=== PATIENT | female | born 1960 | race Caucasian/White ===

== ENCOUNTER 2016-08-26 19:26 | Observation (INO) | payer MEDICAID ==
--- NOTE | 2016-08-26 19:36 | EDPRACDOC ---
- General Information Chief Complaint: Psychiatric Illness Stated Complaint: MENTAL EVAL Time Seen by Provider: 08/26/16 19:27 Home Medications: Home Medications Alprazolam [Xanax] 0.5 mg PO DAILY 08/26/16 Aspirin 81 mg PO DAILY 08/26/16 Budesonide/Formoterol Fumarate [Symbicort 160-4.5 Mcg Inhaler] 2 puff INH BID Clonazepam 0.5 mg PO Q8H PRN 08/26/16 Dexlansoprazole [Dexilant] 60 mg PO DAILY 08/26/16 Divalproex Sodium [Depakote ER] 500 mg PO TID 08/26/16 Docusate Sodium [Colace] 100 mg PO BID 08/26/16 Duloxetine HCl [Cymbalta] 30 mg PO BID 08/26/16 Montelukast Sodium [Singulair] 10 mg PO DAILY 08/26/16 [place]-3 Fatty Acids/Fish Oil [Fish Oil 1,000 mg Capsule] 1 cap PO DAILY Phenytoin Sodium Extended [Dilantin] 100 mg PO TID 08/26/16 Allergies/Adverse Reactions: Allergies Allergy/AdvReac Type Severity Reaction Status Date / Time gatifloxacin Allergy Unknown Verified 08/26/16 20:01 SHELLFISH Allergy Unknown Uncoded 08/26/16 19:53 TEQUIN Allergy Unknown Uncoded 08/26/16 19:53 - History of Present Illness Onset: UNKNOWN HPI: PT FROM [facility] DUE TO AGGRESSIVE BEHAVIORS TOWARDS STAFF. EMS REPORTS THAT PT IS A NEW RESIDENT THERE AND HAS BEEN HAVING INCREASING AGGRESSIVE BEHAVIORS OVER LAST FEW DAYS. PT HAS HX OF SIGNIFICANT DEMENTIA AND IS UNABLE TO PROVIDE ADEQUATE HISTORY. Reason for Seeking Treatment: 911 Call Presents With: Reports: Other (COMBATIVE) Expresses: Reports: None Suicidal Plan: Reports: None Relevant History: Reports: None Medication Compliance: Yes Able to Care for Self: No (PT IS IN [facility]) Associated Signs and Symptoms: Reports: None ED Past Medical History - History Reviewed Yes Nurses notes reviewed and agree except as marked Information Unobtainable: Yes Unable to obtain information due to patient condition - Patient Medical History Neurological History: Reports: Seizures, Dementia - Social Medical History Lives In: Assisted Living EDM Review of Systems - Review of Systems ROS Unobtainable: Yes Review of systems cannot be obtained due to the patient's medical condition - Physical Exam Constitutional: Alert (Awake), No apparent distress Oriented to: Person Last recorded Vital Signs: Oxygen Pulse Oxygen Saturation O2 Device Oxygen Flow Rate Fraction of Inspired Oxygen ( FIO2) - HEENT Head: Normal ( normocephalic) Eye Exam: Normal (PERRL, EOMI, Sclera white) Oropharynx: Normal (Pharynx:Moist without exudate,Gums-no swelling) Tympanic Membrane: Normal ENT EAC: Normal TMJ: Normal Nose: No Symptoms Reported (septum midline) Neck: Normal (FROM, trachea at midline) HEENT Comment: OLD BRUISING NOTED BELOW RIGHT EYE, FAINT - Respiratory/Cardiovascular Respiratory: Normal - CTA (BBS clear to auscultation without adventitious sounds ) Cardiovascular: Normal (RRR without murmur, gallop or rub) - GI Auscultation: Normal (NABS) Palpation: Normal (Soft,No rebound or guarding, non distended) Tenderness: Non tender Ambrosio's Sign: Negative - Musculoskeletal Back: Normal (Non-Tender) Extremities: Normal (Normal tone, Pulses 2+ No cyanosis or edema, FROM) - Integumentary Skin: Normal, Warm, Dry Lymphatics: Normal (no adenopathy) - Neurologic Memory Impaired: Unable to Test Motor Function: Unable to Test Cranial Nerve: Unable to Test Cerebellar: Unable to Test Mood Description: Normal Initial Evaluation Apperance: Older than stated age Attitude: Cooperative Mood: Euthymic Affect: Congruent w/ mood Memory Description: Recent Impaired, Remote Impaired - Differential Diagnosis Bipolar disorder, Schizophrenia - Re-evaluation Re-evaluation 1 Re-evaluation Time: 20:01 (PT REFUSING TO STAY IN BED, URINATED ON FLOOR) Re-evaluation 2 Re-evaluation Time: 00:11 (IMPROVED AFTER GEODON, WILL ADD RISPERDAL) - Results 08/26/16 22:50 08/26/16 22:50 08/27/16 00:12 Laboratory Results - last 24 hr 08/26/16 08/26/16 08/26/16 19:50 19:50 22:50 WBC RBC Hgb Hct MCV MCH MCHC RDW Plt Count MPV Neut % (Auto) Lymph % (Auto) [place] % (Auto) Eos % (Auto) Baso % (Auto) Absolute Neuts (auto) Absolute Lymphs (auto) Sodium 149 H Potassium 4.3 Chloride 109 H Carbon Dioxide 27 Anion Gap 17 H BUN 16 Creatinine 0.80 Estimated GFR (MDRD) > 60 Glucose 92 Calculated Osmolality 287 Calcium 9.0 Corrected Calcium 9.2 Total Bilirubin 0.8 AST 85 H ALT 60 H Alkaline Phosphatase 106 Ammonia Total Protein 7.7 Albumin 4.0 Urine Color Ada Urine Clarity Clear Urine pH 5.0 Ur Specific [place] 1.030 Urine Protein 1+ H Urine Glucose (UA) Neg Urine Ketones 1+ H Urine Occult Blood Neg Urine Nitrite Neg Urine Bilirubin Neg Urine Urobilinogen 2 H Ur Leukocyte Esterase Neg Urine RBC 0-2 Urine WBC 2-5 Ur Epithelial Cells 1+ Urine Bacteria Few Hyaline Casts 2-5 H Urine Mucus Mod H Urine Opiates Screen Neg Ur Oxycodone Screen Neg Urine Methadone Screen Neg Ur Barbiturates Screen *positive* H Phenytoin < 3.0 L Valproic Acid 86.8 Ur Tricyclics Screen Neg Ur Phencyclidine Scrn Neg Ur Amphetamines Screen Neg U Methamphetamines Scrn Neg Urine MDMA Screen Neg U Benzodiazepines Scrn *positive* H Urine Cocaine Screen Neg Ur THC Screen Neg Plasma/Serum Ethyl Alc 08/26/16 08/26/16 22:50 22:50 WBC 7.0 RBC 3.84 L Hgb 13.1 Hct 38.6 MCV 101 H MCH 34.1 H MCHC 33.9 RDW 14.0 Plt Count 218 MPV 8.9 Neut % (Auto) 40.6 L Lymph % (Auto) 45.3 H [place] % (Auto) 12.6 H Eos % (Auto) 0.4 Baso % (Auto) 1.1 Absolute Neuts (auto) 2.80 Absolute Lymphs (auto) 3.15 Sodium Potassium Chloride Carbon Dioxide Anion Gap BUN Creatinine Estimated GFR (MDRD) Glucose Calculated Osmolality Calcium Corrected Calcium Total Bilirubin AST ALT Alkaline Phosphatase Ammonia 35.0 H Total Protein Albumin Urine Color Urine Clarity Urine pH Ur Specific [place] Urine Protein Urine Glucose (UA) Urine Ketones Urine Occult Blood Urine Nitrite Urine Bilirubin Urine Urobilinogen Ur Leukocyte Esterase Urine RBC Urine WBC Ur Epithelial Cells Urine Bacteria Hyaline Casts Urine Mucus Urine Opiates Screen Ur Oxycodone Screen Urine Methadone Screen Ur Barbiturates Screen Phenytoin Valproic Acid Ur Tricyclics Screen Ur Phencyclidine Scrn Ur Amphetamines Screen U Methamphetamines Scrn Urine MDMA Screen U Benzodiazepines Scrn Urine Cocaine Screen Ur THC Screen Plasma/Serum Ethyl Alc - Departure Disposition: Admit to Condition: Stable Final Diagnosis: Advanced dementia, Agitation Education/Counseling Given To: Patient Education/Counseling Given Regarding: Diagnosis, Treatment, Prognosis, Follow Up Referrals: Saran Peoples MD [Primary Care Provider] - One Week Prescriptions: No Action Phenytoin Sodium Extended [Dilantin] 100 mg PO TID Budesonide/Formoterol Fumarate [Symbicort 160-4.5 Mcg Inhaler] 2 puff INH BID [place]-3 Fatty Acids/Fish Oil [Fish Oil 1,000 mg Capsule] 1 cap PO DAILY Montelukast Sodium [Singulair] 10 mg PO DAILY Duloxetine HCl [Cymbalta] 30 mg PO BID Docusate Sodium [Colace] 100 mg PO BID Divalproex Sodium [Depakote ER] 500 mg PO TID Dexlansoprazole [Dexilant] 60 mg PO DAILY Aspirin 81 mg PO DAILY Alprazolam [Xanax] 0.5 mg PO DAILY Clonazepam 0.5 mg PO Q8H PRN PRN Reason: Anxiety
[2016-08-26 19:52] VITALS: BMI 29.0
[2016-08-26 19:55] LABS: ALL NEG? NO
[2016-08-26 20:00] LABS: LEUKOCYTES/URINE NEG (NEGATIVE); NITRITE/URINE NEG (NEGATIVE); RBC/URINE 0-2 (0-5); URINE OCCULT BLOOD NEG (NEG/TRACE)
[2016-08-26 20:01] LABS: MDMA* NEG (NEGATIVE); METHAMPHETAMINES NEG (NEGATIVE)
[2016-08-26] MEDS ORDERED: HALOPERIDOL 5 MG/ML VIAL IM ONE (20:01)
[2016-08-26 20:02] LABS: OXYCODONE NEG (NEGATIVE)
[2016-08-26] MEDS ORDERED: LORAZEPAM 2 MG/ML VIAL IM ONE (20:02)
[2016-08-26] MEDS ORDERED: HALOPERIDOL 5 MG/ML VIAL ONE (20:13)
[2016-08-26] MEDS ORDERED: ZIPRASIDONE 20 MG VIAL IM ONE (21:18)
[2016-08-26] MEDS ORDERED: WATER 10 ML ONE (22:06)
[2016-08-26 23:02] LABS: AUTOMATED BASOPHIL 1.1 % (0-2); AUTOMATED EOSINOPHIL 0.4 % (0-5); AUTOMATED LYMPH 45.3 % (17-44); AUTOMATED MONOCYTE 12.6 % (3-10); AUTOMATED NEUTROPHIL 40.6 % (45-76); MPV 8.9 fL (7.4-10.4)
[2016-08-26 23:11] LABS: BLOOD UREA NITROGEN 16 MG/DL (7-17); CALCULATED OSMOLALITY 287 MOs/Kg (270-290); CHLORIDE 109 mEq/L (98-107); ETOH-MGDL < 10 mg/dL; GLUCOSE 92 MG/DL (70-99); SODIUM LEVEL 149 mEq/L (137-146); TOTAL PROTEIN 7.7 G/DL (6.3-8.2)
[2016-08-26 23:16] LABS: VALPROIC ACID LEVEL 86.8 MCG/ML (50-100)
[2016-08-26 23:50] LABS: CALC CORRECTED 9.2 MG/DL (8.4-10.2)
[2016-08-26 23:59] LABS: PHENYTOIN/DILANTIN LEVEL < 3.0 MCG/ML (10-20)
[2016-08-27] MEDS ORDERED: ACETAMINOPHEN 325 MG/TAB TABLET PO PRN (00:14)
[2016-08-27] MEDS ORDERED: MAGNESIUM HYDROXIDE 30 ML BOTTLE PO PRN (00:14)
[2016-08-27] MEDS ORDERED: Aluminum;Magnesium;Simethicone 30 ML UDC PO PRN (00:14)
[2016-08-27] MEDS ORDERED: ONDANSETRON HCL 4 MG ODT TAB PO PRN (00:14)
[2016-08-27] MEDS ORDERED: ZOLPIDEM TARTRATE 5 MG TAB PO PRN (00:14)
[2016-08-27] MEDS: ALBUTEROL 0.083% 3 ML NEB NEB SCH ×3 (02:49→14:37)
[2016-08-27] MEDS: DIVALPROEX SODIUM 500 MG EXT REL TAB PO SCH ×3 (06:46→22:00)
[2016-08-27] MEDS: PHENYTOIN SODIUM 100 MG CAP PO SCH ×3 (06:46→22:00)
[2016-08-27] MEDS: PANTOPRAZOLE 40 MG TAB PO SCH (06:47)
--- NOTE | 2016-08-27 08:13 | EDTUNOTE ---
Initial Evaluation Apperance: Older than stated age Attitude: Cooperative Mood: Euthymic Affect: Congruent w/ mood Memory Description: Recent Impaired, Remote Impaired - SOAP Note Patient Problems: Active Problems Advanced dementia (Acute) F03.90 Agitation (Acute) R45.1 SOAP Note: S: pt sitting quietly eating breakfast with assistance. O: VS nml A: Advanced dementia (Acute) F03.90 Agitation (Acute) R45.1 P: will cont to monitor pending further evaluation and disposition
[2016-08-27] MEDS: ASPIRIN (CHEWABLE) 81 MG TAB PO SCH (08:20)
[2016-08-27] MEDS: Docusate Sodium 100 MG CAP PO SCH ×2 (08:21→22:00)
[2016-08-27] MEDS: DULOXETINE 30 MG CAP PO SCH ×2 (08:21→22:00)
[2016-08-27] MEDS: ALPRAZOLAM 0.5 MG TAB PO SCH (08:21)
[2016-08-27] MEDS: OMEGA-3-ACID ETHYL ESTERS 1000 MG CAP PO SCH (08:21)
[2016-08-27] MEDS: RISPERIDONE 1 MG TAB PO SCH ×2 (08:21→22:00)
[2016-08-27] MEDS: MONTELUKAST SODIUM 10 MG TAB PO SCH (08:21)
[2016-08-27] MEDS: BUDESONIDE 0.5 MG NEB NEB SCH ×2 (08:46→20:50)
[2016-08-27] MEDS ORDERED: Non-Formulary Medication ITEM (Dexlansoprazole [Dexilant] 60 MG) PO SCH (09:00)
[2016-08-27] MEDS ORDERED: Non-Formulary Medication ITEM (Budesonide/Formoterol Fumarate [Symbicort 160-4.5 Mcg Inh INH SCH (09:00)
[2016-08-27] MEDS ORDERED: ALBUTEROL 0.083% 3 ML NEB NEB PRN (14:21)
[2016-08-28] MEDS: DIVALPROEX SODIUM 500 MG EXT REL TAB PO SCH ×3 (06:10→20:15)
[2016-08-28] MEDS: PANTOPRAZOLE 40 MG TAB PO SCH (06:10)
[2016-08-28] MEDS: PHENYTOIN SODIUM 100 MG CAP PO SCH ×3 (06:10→20:07)
--- NOTE | 2016-08-28 08:10 | EDTUNOTE ---
Initial Evaluation Apperance: Older than stated age Attitude: Cooperative Mood: Euthymic Affect: Congruent w/ mood Memory Description: Recent Impaired, Remote Impaired - SOAP Note Patient Problems: Active Problems Advanced dementia (Acute) F03.90 Agitation (Acute) R45.1 SOAP Note: S: pt sleeping O: VS nml A: Advanced dementia (Acute) F03.90 Agitation (Acute) R45.1 P: will cont to monitor pending further evaluation and disposition
[2016-08-28] MEDS: Docusate Sodium 100 MG CAP PO SCH ×2 (08:32→20:06)
[2016-08-28] MEDS: OMEGA-3-ACID ETHYL ESTERS 1000 MG CAP PO SCH (08:32)
[2016-08-28] MEDS: ASPIRIN (CHEWABLE) 81 MG TAB PO SCH (08:32)
[2016-08-28] MEDS: ALPRAZOLAM 0.5 MG TAB PO SCH (08:32)
[2016-08-28] MEDS: DULOXETINE 30 MG CAP PO SCH ×2 (08:32→20:06)
[2016-08-28] MEDS: RISPERIDONE 1 MG TAB PO SCH ×2 (08:32→20:07)
[2016-08-28] MEDS: MONTELUKAST SODIUM 10 MG TAB PO SCH (08:32)
[2016-08-28] MEDS: BUDESONIDE 0.5 MG NEB NEB SCH ×2 (09:39→20:50)
[2016-08-29] MEDS: DIVALPROEX SODIUM 500 MG EXT REL TAB PO SCH ×3 (06:02→20:26)
[2016-08-29] MEDS: PANTOPRAZOLE 40 MG TAB PO SCH (06:02)
[2016-08-29] MEDS: PHENYTOIN SODIUM 100 MG CAP PO SCH ×3 (06:02→20:27)
--- NOTE | 2016-08-29 08:59 | EDTUNOTE ---
Initial Evaluation Apperance: Older than stated age Attitude: Cooperative Mood: Euthymic Affect: Congruent w/ mood Memory Description: Recent Impaired, Remote Impaired - SOAP Note Patient Problems: Active Problems Advanced dementia (Acute) F03.90 Agitation (Acute) R45.1 Time Seen By Provider: 08:55 SOAP Note: S: Patient does not give any history, presented to ED for aggressive behavior at SNF. O: VSS, afebrile CTAB RRR Calm and cooperative A: Advanced dementia (Acute) F03.90 Agitation (Acute) R45.1 P: Continue to manage and monitor awaiting disposition. EKG for placement Interpretation by me 78bpm NSR No axis deviation Normal ST/T wave
[2016-08-29] MEDS: BUDESONIDE 0.5 MG NEB NEB SCH ×2 (09:07→21:43)
[2016-08-29] MEDS: ASPIRIN (CHEWABLE) 81 MG TAB PO SCH (09:15)
[2016-08-29] MEDS: Docusate Sodium 100 MG CAP PO SCH ×2 (09:16→20:35)
[2016-08-29] MEDS: OMEGA-3-ACID ETHYL ESTERS 1000 MG CAP PO SCH (09:17)
[2016-08-29] MEDS: DULOXETINE 30 MG CAP PO SCH ×2 (09:17→20:27)
[2016-08-29] MEDS: MONTELUKAST SODIUM 10 MG TAB PO SCH (09:17)
[2016-08-29] MEDS: RISPERIDONE 1 MG TAB PO SCH ×2 (09:17→20:27)
[2016-08-29] MEDS: ALPRAZOLAM 0.5 MG TAB PO SCH (09:18)
[2016-08-30] MEDS: PHENYTOIN SODIUM 100 MG CAP PO SCH (05:52)
[2016-08-30] MEDS: PANTOPRAZOLE 40 MG TAB PO SCH (05:52)
[2016-08-30] MEDS: DIVALPROEX SODIUM 500 MG EXT REL TAB PO SCH (05:53)
[2016-08-30] MEDS: BUDESONIDE 0.5 MG NEB NEB SCH (08:07)
[2016-08-30] MEDS: RISPERIDONE 1 MG TAB PO SCH (08:16)
[2016-08-30] MEDS: OMEGA-3-ACID ETHYL ESTERS 1000 MG CAP PO SCH (08:18)
[2016-08-30] MEDS: Docusate Sodium 100 MG CAP PO SCH (08:20)
[2016-08-30] MEDS: ASPIRIN (CHEWABLE) 81 MG TAB PO SCH (08:20)
[2016-08-30] MEDS: DULOXETINE 30 MG CAP PO SCH (08:22)
[2016-08-30] MEDS: MONTELUKAST SODIUM 10 MG TAB PO SCH (08:23)
[2016-08-30] MEDS: ALPRAZOLAM 0.5 MG TAB PO SCH (08:28)
[2016-08-30] MEDS ORDERED: LACTULOSE 20 GM/30 ML ORAL SOLN PO SCH (09:00)
[2016-08-30] MEDS ORDERED: LACTULOSE 20 GM/30 ML ORAL SOLN PO ONE (09:12)
--- NOTE | 2016-08-30 09:18 | EDTUNOTE ---
Initial Evaluation Apperance: Older than stated age Attitude: Cooperative Mood: Euthymic Affect: Congruent w/ mood Memory Description: Recent Impaired, Remote Impaired - SOAP Note Patient Problems: Active Problems Advanced dementia (Acute) F03.90 Agitation (Acute) R45.1 SOAP Note: S: Patient does not give any history, presented to ED for aggressive behavior at SNF. Has h/o dementia, Hep c with an elevated ammonia level and schizophrenia. Pt was crawling around on floor this am when I entered the room. Pt has no c/o this am. O: VSS, afebrile Phenytoin level 35 Ast/Alt 85/60 CTAB RRR Calm and cooperative A: Advanced dementia (Acute) F03.90 Agitation (Acute) R45.1 Hep C Elevated Ammonia P: Continue to manage and monitor awaiting disposition. Will start Lactulose 20mg now x 1 dose then 10mg daily. Check valproic acid level adjust if needed.
[2016-08-30 11:50] VITALS: BP 120/76; PULSE 86; TEMP 97.9
--- NOTE | 2016-08-30 12:08 | TUDEPART ---
Disposition: [facility] Condition: Stable Instructions: Dementia (GEN) Education/Counseling Given To: Patient Education/Counseling Given Regarding: Diagnosis, Treatment, Prognosis, Follow Up Follow-up / Referrals: Saran Peoples MD [Primary Care Provider] - One Week - Physical Exam Constitutional: Alert (Awake), No apparent distress Oriented to: Person Last recorded Vital Signs: Last Vital Signs Temp 97.9 F 08/30/16 11:50 Pulse 86 08/30/16 11:50 Resp 18 08/30/16 11:50 BP 120/76 08/30/16 11:50 Pulse Ox 96 08/30/16 11:50 Oxygen Pulse Oxygen Saturation 96 O2 Device Room Air Oxygen Flow Rate Fraction of Inspired Oxygen ( FIO2) - HEENT Head: Normal ( normocephalic) Eye Exam: Normal (PERRL, EOMI, Sclera white) Oropharynx: Normal (Pharynx:Moist without exudate,Gums-no swelling) Tympanic Membrane: Normal ENT EAC: Normal TMJ: Normal Nose: No Symptoms Reported (septum midline) - Respiratory/Cardiovascular Respiratory: Normal - CTA (BBS clear to auscultation without adventitious sounds ) Cardiovascular: Normal (RRR without murmur, gallop or rub) - GI Auscultation: Normal (NABS) Palpation: Normal (Soft,No rebound or guarding, non distended) Tenderness: Non tender Ambrosio's Sign: Negative - Musculoskeletal Back: Normal (Non-Tender) Extremities: Normal (Normal tone, Pulses 2+ No cyanosis or edema, FROM) - Integumentary Skin: Normal, Warm, Dry Lymphatics: Normal (no adenopathy) - Neurologic Memory Impaired: Unable to Test Motor Function: Unable to Test Cranial Nerve: Unable to Test Cerebellar: Unable to Test Mood Description: Normal
[2016-08-31] MEDS ORDERED: LACTULOSE 20 GM/30 ML ORAL SOLN PO SCH (09:00)
== END 2016-08-30 13:10 | disposition home or self-care (01) ==
LOC: ED 19:26 → EDINP 08-27 00:13 → TUOBSINP 08-27 09:11
PROVIDERS: ADMIT Physician Assistant Medical; ATTEND Physician Assistant Medical
DX: F03.91 Unspecified dementia, unspecified severity, with behavioral disturbance (principal); R45.1 Restlessness and agitation; Z79.899 Other long term (current) drug therapy; Z79.82 Long term (current) use of aspirin
CPT/HCPCS: 36415; 80053; 80164; 80185; 80307; 81001; 82140; 85025; 94640; 96372; 97116; 97162; 99285; G0378; J1630; J2060; J3486; J3490; E0710